=== PATIENT | female | born 1990 | race Two or more races ===

== ENCOUNTER 2022-08-13 19:32 | Emergency (ER) | payer OTHER ==
[~2022-08-13] VITALS: Ht 162.6 cm; Wt 83.5 kg
[2022-08-13] MEDS ORDERED: PRENA1 TRUE CO1 EACH (20:07)
== END 2022-08-13 22:44 | disposition home or self-care (01) ==
LOC: ER 19:32
DX: O26.892 Other specified pregnancy related conditions, second trimester (principal); Z3A.18 18 weeks gestation of pregnancy; R10.2 Pelvic and perineal pain; V89.2XXA Person injured in unspecified motor-vehicle accident, traffic, initial encounter; Y92.410 Unspecified street and highway as the place of occurrence of the external cause; Y93.9 Activity, unspecified; Y99.9 Unspecified external cause status; Z91.013 Allergy to seafood

== ENCOUNTER 2022-12-24 13:30 | Inpatient (IN) | payer OTHER ==
[~2022-12-24] VITALS: Ht 160 cm; Wt 3.2 kg
[~2022-12-24 13:30] MED LIST: PRENA1 TRUE CO1 EACH
[2023-01-08] MEDS ORDERED: FOLIC ACID20 MG PO ×2 (07:00→07:01)
[2023-01-11] MEDS ORDERED: IBUPROFEN800 MG PO (11:15)
== END 2023-01-11 12:09 | disposition home or self-care (01) | DRG 788 ==
LOC: OB/GYN 01-02 13:30 → LDR 01-08 05:47 → O/R 01-08 20:50 → OB/GYN 01-08 23:31
PROVIDERS: ADMIT Specialist; ATTEND Specialist
PROC: 3E0P7VZ Introduction of Hormone into Female Reproductive, Via Natural or Artificial Opening (ICD-10-PCS; 2023-01-08)
PROC: 4A1HXCZ Monitoring of Products of Conception, Cardiac Rate, External Approach (ICD-10-PCS; 2023-01-08)
PROC: 10D00Z1 Extraction of Products of Conception, Low, Open Approach (ICD-10-PCS; principal; 2023-01-09)
PROC: 3E033VJ Introduction of Other Hormone into Peripheral Vein, Percutaneous Approach (ICD-10-PCS; 2023-01-09)
DX: O62.0 Primary inadequate contractions (principal); O36.8330 Maternal care for abnormalities of the fetal heart rate or rhythm, third trimester, not applicable or unspecified; O99.824 Streptococcus B carrier state complicating childbirth; Z3A.40 40 weeks gestation of pregnancy; Z37.0 Single live birth; Z20.822 Contact with and (suspected) exposure to COVID-19